=== PATIENT | female | born 1980 | race Caucasian/White ===

== ENCOUNTER 2020-07-20 15:19 | Outpatient (REF) | payer OTHER, SELFPAY ==
[2020-07-20 15:54] LABS: HCT 40.9 % (36.0-46.0); HGB 13.9 g/dL (11.2-15.7); MCH 30.4 pg (27.0-33.0); MCV 89.5 fL (80-95); MPV 10.6 fL (8.0-11.0); Platelet Count 236 10^3/uL (130-400); RBC 4.57 10^6/uL (3.93-5.22); RDW 12.2 % (11.7-14.6); RDW-SD 39.5 fL; WBC 4.29 10^3/uL (4.4-10.8)
[2020-07-20 15:57] LABS: ALT 24 U/L (14-59); AST 15 U/L (15-37); Albumin 4.5 g/dL (3.4-5.0); Alkaline Phosphatase 50 U/L (46-116); BUN 15 mg/dL (7-18); Bilirubin, Total 0.4 mg/dL (0.2-1.0); CREATININE 0.7 mg/dL (0.55-1.02); Calcium 9.7 mg/dL (8.5-10.1); Chloride 105 mmol/L (98-107); Glucose 81 mg/dL (74-106); Potassium 4.7 mmol/L (3.5-5.1); Sodium 141 mmol/L (136-145); TSH 1.41 uIU/mL (0.36-3.74); Total Protein 7.2 g/dL (6.4-8.2)
== END 2020-07-20 15:20 | disposition home or self-care (01) ==
LOC: NCHCN 15:19
PROVIDERS: PCP Internal Medicine; Visit Provider Internal Medicine
DX: N92.0 Excessive and frequent menstruation with regular cycle (principal); R11.0 Nausea
CPT/HCPCS: 80053; 85027; 84443